=== PATIENT | male | born 1980 ===

== ENCOUNTER 2022-03-09 22:39 | Inpatient (IN) | payer BC ==
[~2022-03-09] VITALS: Ht 177.8 cm; Wt 89.3 kg
[2022-03-09] MEDS ORDERED: B-1100 M1 PO (23:01)
[2022-03-09] MEDS ORDERED: GABA300 PO (23:01)
[2022-03-09] MEDS ORDERED: FOLI1 PO (23:02)
[2022-03-09] MEDS ORDERED: MULVITA PO (23:02)
[2022-03-09] MEDS ORDERED: MELATONIN5 M1 PO (23:02)
[2022-03-09] MEDS ORDERED: CHLO5 PO (23:02)
[2022-03-09] MEDS ORDERED: CHLO5 (23:03)
[2022-03-09] MEDS ORDERED: Lisinopril-Hct1 EAC4 PO (23:03)
[2022-03-09] MEDS ORDERED: HYDHCL25 (23:04)
[2022-03-09] MEDS ORDERED: CATAPRES0.1 MG PO (23:06)
[2022-03-09] MEDS ORDERED: PROM25 PO (23:07)
[2022-03-09] MEDS ORDERED: METO25 PO (23:07)
[2022-03-09] MEDS ORDERED: Nicoderm Cq1 EACH TOP (23:08)
[2022-03-09] MEDS ORDERED: NICOTINE LOZENGE2 MG MM (23:08)
[2022-03-09] MEDS ORDERED: TRAZ50 PO (23:08)
[2022-03-10 01:00] LABS: BASOPHILS ABSOLUTE AUTO 0.07 K/mm3 (0.00-0.23); BASOPHILS PERCENT AUTO 1 % (0-2); EOSINOPHILS ABSOLUTE AUTO 0.06 K/mm3 (0.00-0.68); EOSINOPHILS PERCENT AUTO 1 % (0-6); Hematocrit 32.8 % (37.0-53.0); Hemoglobin 11.5 g/dL (13.5-17.5); IMMATURE GRAN ABSOLUTE AUTO 0.03 K/mm3 (0.00-0.10); IMMATURE GRAN PERCENT AUTO 1 % (0-1); LYMPHOCYTES ABSOLUTE AUTO 0.93 K/mm3 (0.84-5.20); LYMPHOCYTES PERCENT AUTO 16 % (21-46); MONOCYTES ABSOLUTE AUTO 0.71 K/mm3 (0.16-1.47); MONOCYTES PERCENT AUTO 12 % (4-13); Mean Corpuscular HGB 34.2 pg (26.0-34.0); Mean Corpuscular HGB Conc 35.1 g/dL (31.5-36.5); Mean Corpuscular Volume 98 fL (80-100); Mean Platelet Volume 9.8 fL (9.1-12.4); NEUTROPHILS ABSOLUTE AUTO 4.17 K/mm3 (1.96-9.15); NEUTROPHILS PERCENT AUTO 70 % (41-73); Platelet Count 107 K/mm3 (150-400); RDW Coefficient Variation 14.2 % (11.7-14.2); RDW Standard Deviation 51.3 fL (35.1-46.3); Red Blood Cell Count 3.36 M/mm3 (4.30-5.90); White Blood Cell Count 5.97 K/mm3 (4.00-11.30)
[2022-03-10 01:17] LABS: Albumin, Blood 3.7 g/dL (3.4-5.0); Albumin/Globulin Ratio 1.2 (0.8-1.8); Bilirubin, Total 0.6 mg/dL (0.1-1.0); Bun/Creatinine Ratio 23.1 (12.0-20.0); Calcium, Blood 8.7 mg/dL (8.5-10.1); Creatinine, Blood 0.91 mg/dL (0.60-1.20); Globulin, Blood 3.2 g/dL (2.2-4.0); Magnesium, Blood 1.7 mg/dL (1.6-2.4); Potassium, Blood 3.8 mmol/L (3.5-5.5); Total Protein, Blood 6.9 g/dL (6.4-8.2)
[2022-03-10 05:56] LABS: BASOPHILS ABSOLUTE AUTO 0.04 K/mm3 (0.00-0.23); BASOPHILS PERCENT AUTO 1 % (0-2); EOSINOPHILS ABSOLUTE AUTO 0.02 K/mm3 (0.00-0.68); EOSINOPHILS PERCENT AUTO 0 % (0-6); Hematocrit 30.4 % (37.0-53.0); Hemoglobin 10.6 g/dL (13.5-17.5); IMMATURE GRAN ABSOLUTE AUTO 0.03 K/mm3 (0.00-0.10); IMMATURE GRAN PERCENT AUTO 1 % (0-1); LYMPHOCYTES ABSOLUTE AUTO 0.62 K/mm3 (0.84-5.20); LYMPHOCYTES PERCENT AUTO 10 % (21-46); MONOCYTES ABSOLUTE AUTO 0.49 K/mm3 (0.16-1.47); MONOCYTES PERCENT AUTO 8 % (4-13); Mean Corpuscular HGB 33.2 pg (26.0-34.0); Mean Corpuscular HGB Conc 34.9 g/dL (31.5-36.5); Mean Corpuscular Volume 95 fL (80-100); Mean Platelet Volume 10.1 fL (9.1-12.4); NEUTROPHILS ABSOLUTE AUTO 4.91 K/mm3 (1.96-9.15); NEUTROPHILS PERCENT AUTO 80 % (41-73); Platelet Count 105 K/mm3 (150-400); RDW Coefficient Variation 14.1 % (11.7-14.2); RDW Standard Deviation 49.3 fL (35.1-46.3); Red Blood Cell Count 3.19 M/mm3 (4.30-5.90); White Blood Cell Count 6.11 K/mm3 (4.00-11.30)
[2022-03-10 06:11] LABS: Bun/Creatinine Ratio 25.6 (12.0-20.0); Calcium, Blood 8.1 mg/dL (8.5-10.1); Creatinine, Blood 0.74 mg/dL (0.60-1.20); Potassium, Blood 3.7 mmol/L (3.5-5.5)
--- NOTE | 2022-03-10 06:11 | NUR ---
Summary. Pt arrived from ER at approximately 0250. Report received from [facility]. Pt alert and oriented, on RA. CIWA score 5 initially upon arrival, resting tremors noted. PG placed for additional IV access, in SUSANNE. VS stable, see admission assessment for further details. Will continue to monitor and report off to dayshift RN.
--- NOTE | 2022-03-10 09:30 | NUR ---
ASSUMED CARE REPORT FROM ADDIS TANG AT 0700. PT RESTING IN BED. WAKES c VERBAL STIMULI. A&O X 4. ANSWERS QUESTIONS APPROPRIATELY. DENIES NEEDS OR COMPLAINTS OTHER THAN PAIN TO TONGUE. UNABLE TO EAT D/T PAIN. CIWA 7, SIGNIFICANT TREMORS, NO H/A, N/V OR HALLUCINATIONS. MEDICATED c LIBRIUM. LUNGS CLEAR. ST ON MONITOR, RATE 100'S. HTN NOTED. MEDICATED ORDERED. WILL CONTINUE TO MONITOR.
[2022-03-10] MEDS ORDERED: CHLO25 PO (14:19)
--- NOTE | 2022-03-10 15:39 | NUR ---
Upon receiving a spiritual care referral, I visit pt. Pt tells me about the events that led to his hospitalization, his alcoholic problems and the toll on his famiy. He expresses his struggles to forgive himself, and to find his value. I normalize his feelings, explore sources of meaning and guit reduction yet allow the full force of his choices fuel him to move forward. I also provide therapeutic listening, gentle alcohol and drug counselor and prayer. Pt responds well and with tears. He voices appreciation for the time and prayer. I will continue to remain available to patient and family.
--- NOTE | 2022-03-10 15:53 | NUR ---
DISCHARGE CIWA 5-7 THIS SHIFT. NEURO STATUS UNCHANGED. MEDICATED ONCE c LIBRIUM, PT REFUSED ADDITIONAL DOSES BECAUSE HE DIDNT WANT TO FEEL "STONED." NO SEIZURE ACTIVITY. VSS. PT AMB IN ROOM INDEPENDENTLY. TONGUE SWOLLEN. PT DENIES SOB. MANGING SECRETIONS. ABLE TO DRINK FROM [place]. D/C INSTRUCTIONS GIVEN. IVS REMOVED AND PRESSURE DRESSING PLACED. UPDATED ON DISCHARGE. OTD NAD.
== END 2022-03-10 16:00 | DRG 897 ==
LOC: ER 22:39 → ICUW 03-10 02:37
PROVIDERS: Emergency Medicine; Family Medicine; ADMIT Internal Medicine
PROC: HZ2ZZZZ Detoxification Services for Substance Abuse Treatment (ICD-10-PCS; principal; 2022-03-10)
DX: F10.239 Alcohol dependence with withdrawal, unspecified (principal); R56.9 Unspecified convulsions; S01.512A Laceration without foreign body of oral cavity, initial encounter; R00.0 Tachycardia, unspecified; R41.82 Altered mental status, unspecified; R79.89 Other specified abnormal findings of blood chemistry; D64.9 Anemia, unspecified; D69.6 Thrombocytopenia, unspecified; F17.210 Nicotine dependence, cigarettes, uncomplicated; Z79.899 Other long term (current) drug therapy; X58.XXXA Exposure to other specified factors, initial encounter
CPT/HCPCS: 70450; 80048; 80053; 82140; 83735; 85025; 93005; 93010; 96374; 99285-25; A9270; C1751; J1650; J2060; J3411; J3475; J7030; J7042